=== PATIENT | male | born 1990 | race Caucasian/White ===

== ENCOUNTER 2016-11-02 11:07 | Emergency (ER) | payer MEDICAID ==
[~2016-11-02] VITALS: Ht 175.3 cm; Wt 95.3 kg
[2016-11-02 11:15] VITALS: BP 130/69; PULSE 76; RESP 16; TEMP 97.6; O2SAT 95
--- NOTE | 2016-11-02 11:26 | NUR ---
Patient to ER bed 3 to gown for evaluation. Side rails up. Report given to Homero LEYVA.
--- NOTE | 2016-11-02 11:35 | NUR ---
Pt states having severe lower back pain since last night, states suffered an injury since June. states he injured lower back from attempting to lift object. 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 Pt states pain 8/10 in lower back, throbbing sensation. Pt states unable to lie down. No deformities to lower back noted. Pt denies any other complaints.
--- NOTE | 2016-11-02 11:36 | NUR ---
ER Dr. Glover at bedside examining patient.
[2016-11-02 11:41] VITALS: BP 131/71; PULSE 74; RESP 16; TEMP 97.8; O2SAT 97
--- NOTE | 2016-11-02 11:41 | NUR ---
Patient given written and verbal discharge instructions and verbalizes understanding. ER MD discussed with patient the results and treatment provided. Patient in stable condition. ID arm band removed. Patient educated on pain management and to follow up with PMD. Pain Scale 2/10. Opportunity for questions provided and answered.
== END 2016-11-02 11:41 | disposition home or self-care (01) ==
LOC: SED 11:07
DX: S39.012A Strain of muscle, fascia and tendon of lower back, initial encounter (principal); J45.909 Unspecified asthma, uncomplicated; K21.9 Gastro-esophageal reflux disease without esophagitis; F43.10 Post-traumatic stress disorder, unspecified; F41.9 Anxiety disorder, unspecified; Z88.2 Allergy status to sulfonamides; X50.0XXA Overexertion from strenuous movement or load, initial encounter; X50.9XXA Other and unspecified overexertion or strenuous movements or postures, initial encounter; Y93.89 Activity, other specified; Y92.89 Other specified places as the place of occurrence of the external cause; Y99.8 Other external cause status
CPT/HCPCS: 99283